=== PATIENT | female | born 2000 | race African-American/Black ===

== ENCOUNTER 2022-04-07 13:36 | Inpatient (IN) ==
--- NOTE | 2022-04-07 14:38 | Emergency Department Note ---
Impression & Plan Suicidal ideation ED Provider Note NAME: CARMELA NORIEGA AGE: 21 SEX: F : 2000 ARRIVES VIA: Walk-In INFORMANT: [Patient] ED PROVIDER(S): [Jose R Verdugo MD] CHIEF COMPLAINT: Mental health evaluation HISTORY OF PRESENT ILLNESS: The patient is a 21-year-old female who presents to the ER asking for a voluntary psychiatric hospitalization. The patient states that she has been feeling suicidal for about 2 weeks. She has researched some ways to harm her self. She thought about using inhaled nitrogen, she thought about provoking police and getting shot, she thought about jumping off a bridge. The patient did confide in her family, she saw her therapist today and the therapist recommended a hospitalization. She presents for evaluation. Patient is medicated for depression, she is taking her medications as prescribed. She does admit to some increased stressors with friends moving away. She has not had fever, chills, cough or congestion. Her medical health has been stable. She did attempt to harm her self once before but this was many years ago when she was around 12. REVIEW OF SYSTEMS: See HPI for pertinent positives and negatives. A total of ten systems were reviewed and were otherwise negative. PMHx/PSHx: See Below SOCIAL HISTORY: See Below. PHYSICAL EXAM: GENERAL: Patient is in no acute distress. HEENT: No acute trauma, normocephalic atraumatic, mucous membranes moist, no nasal congestion, no scleral icterus. NECK: No stridor, no adenopathy, no meningismus, trachea is midline. LUNGS: Clear to auscultation bilaterally, no wheeze, no rhonchi, breath sounds equal. HEART: Without murmurs gallops or rubs, regular rate and rhythm. ABDOMEN: Soft, nontender, bowel sounds positive, no peritonitis. EXTREMITIES: No cyanosis or edema, full range of motion of all the joints without pain or difficulty, no signs for acute trauma. NEUROLOGIC: Oriented x 3, no acute motor or sensory deficits, no focal weakness. SKIN: No rash, no jaundice, no diaphoresis. Psychiatric: Somewhat flattened affect. Cooperative, voluntary, admits to suicidal ideation with several plans DIFFERENTIAL DIAGNOSIS: Mood disorder, infection, hypoglycemia, depression, suicidality, electrolyte abnormalities, cardiac sources, intracerebral event, toxicologic etiology, trauma, neurologic event, as well as other pathologies. EMERGENCY DEPARTMENT COURSE/PROCEDURES: MEDICAL DECISION MAKING: There is no leukocytosis or concerning anemia. There is a normal platelet count. No renal failure, no significant electrolyte abnormality. No worrisome liver enzyme elevation. The patient appears to be in a euthyroid state. testing is negative. Urinalysis does not show infection. Aspirin, Tylenol and alcohol levels are undetectable. Urine tox was negative. COVID test was negative. On exam, the patient did admit to some suicidal ideation with some plans on how to harm her self. She was voluntary and cooperative. The patient was felt medically clear. She was seen by psychiatry case management. The patient has been accepted at our hospital's psychiatric facility, [facility] She will be admitted voluntarily. Past Med/Surg History Medical History Depression Social History Smoking Status: Never smoker Preferred Language: Persian Feels Safe at Home: Yes Allergies Allergies Allergy/AdvReac Type Severity Reaction Status Date / Time hydroxyzine [From Atarax] AdvReac Confusion Verified 04/07/22 14:55 Home Meds Home Medications Medication Instructions Recorded Confirmed sertraline 100 mg tablet 175 mg PO DAILY 04/07/22 04/07/22 Results & Data (ED) Vital Signs Vital Signs - 24 hr 04/07/22 13:45 Temperature 36.4 C L Temperature Source Temporal Artery Scan Pulse Rate 87 Respiratory Rate 18 Respiratory Effort / Characteristics Non-Labored Respiratory Depth Normal Blood Pressure 121/81 Blood Pressure Mean 94 Pulse Oximetry 98 Oxygen Delivery Method Room Air Sepsis Recent Fever Within 48 Hours No Sepsis New/Unexplained Change in Mental Status No Sepsis Action Taken by Nursing No Action Required Home Medications Current Medication List: was personally reviewed by me Laboratory Data Attestation: I reviewed the patient's lab results. Result diagrams: 04/07/22 14:39 04/07/22 14:39 Lab Results 04/07/22 04/07/22 04/07/22 Range/Units 14:05 14:05 14:39 WBC (4.8-10.8) K/ul RBC (3.93-5.22) M/uL Hgb (12.0-16.0) g/dl Hct (34.1-44.9) % MCV (80.0-100.0) fL MCH (25.0-34.0) pg MCHC (32.0-36.0) g/dL RDW Std Deviation (36.4-46.3) fL RDW Coeff of [place] (11.5-14.5) % Plt Count (130-400) K/uL MPV (9.4-12.3) fL Immature Gran % (Auto) % Neut % (Auto) % Lymph % (Auto) % [place] % (Auto) % Eos % (Auto) % Baso % (Auto) % Neut # (Auto) (1.4-6.5) K/uL Lymph # (Auto) (1.2-3.4) K/uL [place] # (Auto) (0.24-0.82) K/uL Eos # (Auto) (0-0.50) K/uL Baso # (Auto) (0-0.2) K/uL Immature Gran # (Auto) (0.00-0.02) K/uL Sodium (136-145) mmol/L Potassium (3.5-5.1) mmol/L Chloride (98-107) mmol/L Carbon Dioxide (21-32) mmol/L Anion Gap (3-11) BUN (6-23) mg/dl Creatinine (0.6-1.2) mg/dl Est Cr Clr Drug Dosing ml/min Est GFR ( Amer) ml/min Est GFR (Non-Af Amer) ml/min BUN/Creatinine Ratio (10-20) Glucose (70-99(Fasting)) mg/dl Calcium (8.5-10.1) mg/dl Total Bilirubin (0.2-1.0) mg/dl AST (13-39) U/L ALT (7-52) U/L Alkaline Phosphatase (34-104) U/L Total Protein (6.0-8.3) gm/dl Albumin (3.4-5.0) gm/dl Globulin (2.5-4.0) gm/dl Albumin/Globulin Ratio (0.9-2) TSH (0.300-4.500) uIu/ml HCG, Qual Negative (Negative) Urine Color Yellow Urine Appearance Clear (Clear) Urine pH 6.0 (4.5-7.5) Ur Specific [place] 1.020 (1.000-1.030) Urine Protein Negative (Negative) Urine Glucose (UA) Negative (Negative) Urine Ketones Negative (Negative) Urine Blood Negative (Negative) Urine Nitrite Negative (Negative) Urine Bilirubin Negative (Negative) Urine Urobilinogen Negative (Negative) Ur Leukocyte Esterase Negative (Negative) Salicylates (3.0-30) mg/dl Urine Opiates Screen Neg (Neg) Ur Methadone, Qual Neg (Neg) Acetaminophen (10-30) ug/ml Urine Barbiturates Neg (Neg) Ur Phencyclidine (PCP) Neg (Neg) U Amphetamin/Meth Scrn Neg (Neg) MDMA (Ecstasy) Screen Neg (Neg) U Benzodiazepines Scrn Neg (Neg) Ur Cocaine Metabolite Neg (Neg) U Marijuana (THC) Screen Pos H (Neg) Ethyl Alcohol mg/dL (<10.0) mg/dl SARS-CoV-2, RNA, NAAT (NEGATIVE) 04/07/22 04/07/22 04/07/22 Range/Units 14:39 14:39 14:39 WBC 7.52 (4.8-10.8) K/ul RBC 4.55 (3.93-5.22) M/uL Hgb 13.6 (12.0-16.0) g/dl Hct 41.8 (34.1-44.9) % MCV 91.9 (80.0-100.0) fL MCH 29.9 (25.0-34.0) pg MCHC 32.5 (32.0-36.0) g/dL RDW Std Deviation 45.0 (36.4-46.3) fL RDW Coeff of [place] 13.2 (11.5-14.5) % Plt Count 309 (130-400) K/uL MPV 9.4 (9.4-12.3) fL Immature Gran % (Auto) 0.3 % Neut % (Auto) 56.3 % Lymph % (Auto) 31.6 % [place] % (Auto) 9.3 % Eos % (Auto) 2.0 % Baso % (Auto) 0.5 % Neut # (Auto) 4.23 (1.4-6.5) K/uL Lymph # (Auto) 2.38 (1.2-3.4) K/uL [place] # (Auto) 0.70 (0.24-0.82) K/uL Eos # (Auto) 0.15 (0-0.50) K/uL Baso # (Auto) 0.04 (0-0.2) K/uL Immature Gran # (Auto) 0.02 (0.00-0.02) K/uL Sodium 138 (136-145) mmol/L Potassium 4.1 (3.5-5.1) mmol/L Chloride 105 (98-107) mmol/L Carbon Dioxide 29 (21-32) mmol/L Anion Gap 4 (3-11) BUN 9 (6-23) mg/dl Creatinine 0.68 (0.6-1.2) mg/dl Est Cr Clr Drug Dosing 126.2 ml/min Est GFR ( Amer) 142.9 ml/min Est GFR (Non-Af Amer) 123.3 ml/min BUN/Creatinine Ratio 13.2 (10-20) Glucose 91 (70-99(Fasting)) mg/dl Calcium 9.1 (8.5-10.1) mg/dl Total Bilirubin 0.4 (0.2-1.0) mg/dl AST 11 L (13-39) U/L ALT 9 (7-52) U/L Alkaline Phosphatase 64 (34-104) U/L Total Protein 7.2 (6.0-8.3) gm/dl Albumin 4.1 (3.4-5.0) gm/dl Globulin 3.1 (2.5-4.0) gm/dl Albumin/Globulin Ratio 1.3 (0.9-2) TSH 1.127 (0.300-4.500) uIu/ml HCG, Qual (Negative) Urine Color Urine Appearance (Clear) Urine pH (4.5-7.5) Ur Specific [place] (1.000-1.030) Urine Protein (Negative) Urine Glucose (UA) (Negative) Urine Ketones (Negative) Urine Blood (Negative) Urine Nitrite (Negative) Urine Bilirubin (Negative) Urine Urobilinogen (Negative) Ur Leukocyte Esterase (Negative) Salicylates (3.0-30) mg/dl Urine Opiates Screen (Neg) Ur Methadone, Qual (Neg) Acetaminophen (10-30) ug/ml Urine Barbiturates (Neg) Ur Phencyclidine (PCP) (Neg) U Amphetamin/Meth Scrn (Neg) MDMA (Ecstasy) Screen (Neg) U Benzodiazepines Scrn (Neg) Ur Cocaine Metabolite (Neg) U Marijuana (THC) Screen (Neg) Ethyl Alcohol mg/dL (<10.0) mg/dl SARS-CoV-2, RNA, NAAT (NEGATIVE) 04/07/22 04/07/22 04/07/22 Range/Units 14:39 14:39 14:39 WBC (4.8-10.8) K/ul RBC (3.93-5.22) M/uL Hgb (12.0-16.0) g/dl Hct (34.1-44.9) % MCV (80.0-100.0) fL MCH (25.0-34.0) pg MCHC (32.0-36.0) g/dL RDW Std Deviation (36.4-46.3) fL RDW Coeff of [place] (11.5-14.5) % Plt Count (130-400) K/uL MPV (9.4-12.3) fL Immature Gran % (Auto) % Neut % (Auto) % Lymph % (Auto) % [place] % (Auto) % Eos % (Auto) % Baso % (Auto) % Neut # (Auto) (1.4-6.5) K/uL Lymph # (Auto) (1.2-3.4) K/uL [place] # (Auto) (0.24-0.82) K/uL Eos # (Auto) (0-0.50) K/uL Baso # (Auto) (0-0.2) K/uL Immature Gran # (Auto) (0.00-0.02) K/uL Sodium (136-145) mmol/L Potassium (3.5-5.1) mmol/L Chloride (98-107) mmol/L Carbon Dioxide (21-32) mmol/L Anion Gap (3-11) BUN (6-23) mg/dl Creatinine (0.6-1.2) mg/dl Est Cr Clr Drug Dosing ml/min Est GFR ( Amer) ml/min Est GFR (Non-Af Amer) ml/min BUN/Creatinine Ratio (10-20) Glucose (70-99(Fasting)) mg/dl Calcium (8.5-10.1) mg/dl Total Bilirubin (0.2-1.0) mg/dl AST (13-39) U/L ALT (7-52) U/L Alkaline Phosphatase (34-104) U/L Total Protein (6.0-8.3) gm/dl Albumin (3.4-5.0) gm/dl Globulin (2.5-4.0) gm/dl Albumin/Globulin Ratio (0.9-2) TSH (0.300-4.500) uIu/ml HCG, Qual (Negative) Urine Color Urine Appearance (Clear) Urine pH (4.5-7.5) Ur Specific [place] (1.000-1.030) Urine Protein (Negative) Urine Glucose (UA) (Negative) Urine Ketones (Negative) Urine Blood (Negative) Urine Nitrite (Negative) Urine Bilirubin (Negative) Urine Urobilinogen (Negative) Ur Leukocyte Esterase (Negative) Salicylates < 3.0 L (3.0-30) mg/dl Urine Opiates Screen (Neg) Ur Methadone, Qual (Neg) Acetaminophen < 3 L (10-30) ug/ml Urine Barbiturates (Neg) Ur Phencyclidine (PCP) (Neg) U Amphetamin/Meth Scrn (Neg) MDMA (Ecstasy) Screen (Neg) U Benzodiazepines Scrn (Neg) Ur Cocaine Metabolite (Neg) U Marijuana (THC) Screen (Neg) Ethyl Alcohol mg/dL < 10.0 (<10.0) mg/dl SARS-CoV-2, RNA, NAAT NEGATIVE (NEGATIVE) Discharge Plan Visit Data Chief Complaint: Mental Health Evaluation Stated Complaint: MH evaluation ED Provider: Jose R Verdugo Discharge Problem: Suicidal ideation Patient Disposition: Admitted As Inpatient Condition: Good Forms Stand Alone Forms: [facility], Suicide Prevention Resources Prescriptions Prescriptions: No Action sertraline 100 mg tablet 175 mg PO DAILY Referrals Referrals: PCP,NO [Primary Care Provider] -
[2022-04-07 14:57] LABS: Basophils # (auto) 0.04 K/uL (0-0.2); Basophils % (auto) 0.5 %; Eosinophils # (auto) 0.15 K/uL (0-0.50); Hematocrit (blood only) 41.8 % (34.1-44.9); Hemoglobin 13.6 g/dl (12.0-16.0); Immature Granulocytes # (auto) 0.02 K/uL (0.00-0.02); Immature Granulocytes % (auto) 0.3 %; Lymphocytes # (auto) 2.38 K/uL (1.2-3.4); Lymphocytes % (auto) 31.6 %; Mean Corpuscular Hemoglobin 29.9 pg (25.0-34.0); Mean Corpuscular Hgb Conc 32.5 g/dL (32.0-36.0); Mean Corpuscular Volume 91.9 fL (80.0-100.0); Mean Platelet Volume 9.4 fL (9.4-12.3); Monocytes % (auto) 9.3 %; Neutrophils # (auto) 4.23 K/uL (1.4-6.5); Neutrophils % (auto) 56.3 %; Platelet Count 309 K/uL (130-400); RDW Coefficient of Variation 13.2 % (11.5-14.5); Red Blood Count 4.55 M/uL (3.93-5.22); White Blood Count 7.52 K/ul (4.8-10.8)
[2022-04-07 15:20] LABS: Acetaminophen < 3 ug/ml (10-30); Salicylate < 3.0 mg/dl (3.0-30)
[2022-04-07 15:21] LABS: Albumin Globulin Ratio 1.3 (0.9-2); Albumin Level 4.1 gm/dl (3.4-5.0); BUN Creatinine Ratio 13.2 (10-20); Bilirubin,Total 0.4 mg/dl (0.2-1.0); Calcium 9.1 mg/dl (8.5-10.1); Creatinine Clr Calc Pharmacy 126.2 ml/min; Est GFR (African American) 142.9 ml/min; Est GFR (Non-African American) 123.3 ml/min; Globulin 3.1 gm/dl (2.5-4.0); Potassium 4.1 mmol/L (3.5-5.1); Total Protein 7.2 gm/dl (6.0-8.3)
[2022-04-07 15:26] LABS: Pregnancy Test, Serum Negative (Negative)
[2022-04-07 15:47] LABS: Appearance Urine Clear (Clear); Bilirubin Urine Negative (Negative); Blood Urine Negative (Negative); Color Urine Yellow; Glucose Urine UA Negative (Negative); Ketones Urine Negative (Negative); Leukocyte Esterase Urine Negative (Negative); Nitrite Urine Negative (Negative); Protein Urine Negative (Negative); Urobilinogen Urine Negative (Negative)
[2022-04-07 16:00] LABS: Amphetamines+Metham, Urine Neg (Neg); Barbiturates, Urine Neg (Neg); Benzodiazepine, Urine Neg (Neg); Cocaine, Urine Neg (Neg); MDMA (Ecstacy), Urine Neg (Neg); Methadone, Urine Neg (Neg); Opiate, Urine Neg (Neg); Phencyclidine, Urine Neg (Neg)
[2022-04-07] MEDS ORDERED: MAGNESIUM HYDROXIDE SUSP 30 ML UDC PO PRN (16:39)
[2022-04-07] MEDS ORDERED: ALUMINUM/MAGNESIUM SUSP 30 ML UDC PO PRN (16:39)
[2022-04-07] MEDS ORDERED: SODIUM CHLORIDE 0.65% NA SOLN 45 ML (OCEAN) PRN (16:39)
[2022-04-07] MEDS ORDERED: ACETAMINOPHEN 325 MG TAB PO PRN (16:39)
[2022-04-07] MEDS ORDERED: BISMUTH SUBSALICYLATE LIQD 236 ML PO PRN (16:39)
[2022-04-07] MEDS ORDERED: MELATONIN 3 MG TAB PO PRN (16:44)
[2022-04-07] MEDS ORDERED: PROPRANOLOL HCL 10 MG TAB PO PRN (17:30)
[2022-04-08] MEDS ORDERED: SERTRALINE HCL 50 MG TABLET PO SCH (09:00)
[2022-04-08] MEDS ORDERED: SERTRALINE HCL 100 MG TABLET PO SCH (09:00)
--- NOTE | 2022-04-08 09:48 | History & Physical ---
Date of Service April 08, 2022 Impression / Recommendations Impression The patient is a 21 year old with a history of MDD, DULCE and PTSD who was admitted for worsening depression and SI with plan. Diagnostically consistent with MDD, recurrent, severe and PTSD and DULCE by history. Possible cluster B traits but suspect much more likely due to significant trauma and genetic predisposition. The patient is deemed unstable and requires psychiatric hospitalization for diagnostic clarification, safety and stabilization, medication management and development of further coping skills. Discussed medication treatment options in detail. Discussed risks, benefits and alternatives including SSRI, Wellbutrin, SNRI. Patient would like to start and consented to an increase in sertraline for MDD and PTSD. Reviewed side effects including but not limited to: GI, CONLEY, sexual side effects, and counseled on black box warning of potential for emergence of or increased SI and need to let staff know should this occur or should they feel unsafe. Also discussed importance of seeking emergency care following discharge if this side effect occurs in the future. Reviewed option to re-try hydroxyzine given adverse response in adolescence may have been increased disinhibition which can occur prior to adulthood but also possibility for repeat of confusion so only if she desires to try it for anxiety. Also discussed propranolol as needed for alternative anxiety medication reviewed that off-label use but can help with anxiety and fight/flight response discussed side effects including but not limited to syncope, low BP, dizziness. (1) MDD (major depressive disorder), recurrent episode, severe: (2) Post traumatic stress disorder (PTSD): (3) Suicidal ideation: Plan 04/08/22: The patient was admitted to the [facility] ([facility]) on q15 min checks (behavioral with suicide precautions) for safety. The patient will participate in group, recreational, and milieu therapies and will be offered additional individual and family sessions as clinically appropriate. -Increase sertraline to 200mg qd -Hydroxyzine 10mg qd prn -Propranolol 10mg BID prn -[place] BPD screen Inventory Assets Strengths: resilient/trauma survivor, higher education achievement, support from family, outpatient provider Needs: safety and stabilization, medication adjustment, additional coping skills, increased outpatient services Suicide Risk Level Suicide Risk Level Comments: High-Moderate due to severe depression with SI with plan prior to admission but feels safe in the hospital, able to safety contract and agrees to let nursing/staff know should they develop plan, intent or feel unable to remain safe. Risk Factors Assessment Do You Have Access To A Gun?: Yes (father has a safe with a gun that is locked ) Mental Health Diagnoses: Yes Previous Attempt: Yes Family History of Suicide: Yes Previous Psychiatric Hospitalization: Yes Hopelessness: Yes Protective Factors Assessment Employed: Yes (works 3 different jobs) Stable Relationships: Yes Supportive Family: Yes Psychiatric History Identifying Data DEV NORIEGA is a 21-year-old F who currently lives in [place] [facility] with her parents, has a history of depression, and was admitted on 04/07/22 16:42 on a 201 voluntary commitment for SI with multiple plans. Chief Complaint "Things got a lot worse lately". History of Present Illness Dev presents for psychiatric admission at the recommendation of her therapist for worsening depression and SI with plans of jumping from a bridge, suicide by police or inhaling nitrogen in the last 2-3 weeks in the context of recent stressors including finishing graduate school, moving home, more social isolation with friends moving away, and romantic rejection. She notes that after the romantic rejection usually she can move on from that but this time "my brain brought up every negative thing that has happened to me". She sometimes has SI when she has a dip in low but over the last few weeks the SI has intensified and gotten to the point of happening all throughout the day and "ruminating on the thoughts" for at least 20 minutes at a time. About three days ago it intensified to the point of plans. Some rehearsal behaviors of veering her car while driving but then would correct herself. Significant neurovegetative symptoms of depression that have been worsening. Has been trying to fall asleep by using a guided meditation. She confirms recent symptoms of worsening depression as reviewed in collateral per ED CM: "Patient reports in the past 2 weeks she has been experiencing increased depressive symptoms; sadness, hopelessness, helplessness, feeling of being a burden to her family, and anhedonia. Patient reports that she also is having suicidal ideations with several plans including, jumping off a bridge, provoking police, or inhaling nitrogen. Patient reports that she was researching inhalation of nitrogen last night, but denies having access to nitrogen. Patient reports that precipitating stressors have been her friends moving across the country to live. Patient also reports feeling unwanted and rejected by people that she had recent intimate relationships. Patient reports that she just moved back home to live with her parents in [place] [facility] after finishing her Master's Degree in Jordanian. 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 Patient reports that her sleep has been varying some due to work, but she feels as though she has been sleeping too much, typically getting 12-13 hours a sleep per night. Patient also reports that her depression has decreased her appetite and caused lack of motivation with her daily activities." She endorses some anxiety symptoms from being in the hospital in a new environment. She endorse PTSD symptoms including intrusive memories/flashbacks after being in the ED, hypervigilance, no longer with night terrors. She has been taking Zoloft 175mg per day for the last 8 years and on 175mg for the last 2-3 years. For awhile it was really helpful at preventing "these really bad lows" but about 2-3 weeks ago the medication stopped being as helpful. Does experience night sweats from it and has to shower in the mornings. Psychiatric ROS notable for no history of ann marie but in college did have some periods of time with decreased sleep but without significant increase in energy, no history of psychosis, hx of trauma/PTSD, hx self-harm via cutting, last two days ago, and using a rubber band, history of restricting calories during childhood and still some body dysmorphia but no restriction/binging or purging. Past Psychiatric History Current Psychiatric Diagnosis: MDD,DULCE, PTSD Outpatient Services: Kaylynn Ontiveros with IFS approach at [facility] just saw for first time yesterday, after June she had been seeing a therapist at [facility] until January EMDR and IFS, previously saw Dr. Nelson for outpatient psychiatry at [facility] Previous Psych Admissions: age 12 at [facility] after suicide attempt Do You Have Access To A Gun?: Yes (father has a safe with a gun that is locked ) History of Previous Suicide Attempt: Yes Describe Attempts in the Past: via strangulation at age 12 Past Medication Trials: hydroxyzine-caused confusion, at age 12; fluoxetine prior to age 12; Past Head Trauma/Neuro History History of Concussion/Seizure: No Allergies Allergy/AdvReac Type Severity Reaction Status Date / Time hydroxyzine [From Atarax] AdvReac Confusion Verified 04/07/22 14:55 Home Medications Medication Instructions Recorded Confirmed Type sertraline 100 mg tablet 175 mg PO DAILY 04/07/22 04/07/22 History Family History Family History of: Depression (mother (takes Wellbutrin) and father), Suicide Attempts, Bipolar (paternal grandmother and possible in father) and Suicide Completion Family Mental Health History Comment: Brother by suicide 5.5 years ago, both great-grandparents on mother's side by suicide. Alcohol History Hx of Alcohol Use Over the Past 12 Months: No AUDIT Total Score: 1 Rare use, at special occasions such as at weddings Smoking Use Have You Smoked or Used Tobacco Products in the Last 30 Days: No Smoking Status: Never smoker Substance History Hx of Prescription Med Misuse Over the Past 12 Months: No Hx of Over the Counter Med Misuse Over the Past 12 Months: No Hx of Inhalent Misuse Over the Past 12 Months: No Hx of Organic Substance Use Over the Past 12 Months: Yes (Marijuana a few times a month.) Hx of Illegal Substances/Street Drug Use Over Past 12 Months: No Problems as a Result of Past Substance Use: None Identified Occasional marijuana use-likes that it's calming and make the "mean thoughts disappear for awhile", doesn't like that her mom doesn't like it. Personal History Living Arrangements: Home Childhood: Grew up in [place] [facility], Parents are . Younger brother who . Very close with her mother and getting closer with her father. 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 Review of Systems Review of Systems: All systems reviewed & are unremarkable except as noted in HPI & below Physical Exam Psychiatric: Orientation: alert and oriented x 3 Apperance: appropriately dressed and appropriately groomed Eye Contact: good eye contact Motor Behavior: no abnormal motor movements Speech: normal rate/rhythm/volume of speech Affect: + depressed affect Mood: + depressed mood and + anxious mood Thought Process: goal directed thought process Thought Content: reality based without delusions Suicidal Thoughts: denies suicidal intent; + reports suicidal thoughts (none currently but SI with plans prior to admission) and + reports suicidal plan (prior to admission, feels safe on the unit) Homicidal Thoughts: denies homicidal thoughts Hallucinations: no auditory hallucinations and no visual hallucinations Cognition: recent memory grossly intact, remote memory grossly intact, attention grossly intact and language grossly intact Estimated Intelligence: consistent with education level Insight: + fair insight Judgement: + fair judgement Vital Signs (Past 24 Hours): Last Vital Signs Temp 36.6 C 04/08/22 06:00 Pulse 72 04/08/22 06:49 Resp 18 04/08/22 06:00 BP 110/75 04/08/22 06:49 Pulse Ox 99 04/08/22 06:00 O2 Del Method 04/08/22 06:00 Exam Statement: A physical exam was performed in the ED by Kartik for the purposes of medical clearance. I accept that physical as correct and adequate for the purposes of the inpatient physical exam. Results & Data ([facility]) Laboratory Results Laboratory Results - last 24 hr 04/07/22 04/07/22 04/07/22 14:05 14:05 14:05 WBC RBC Hgb Hct MCV MCH MCHC RDW Std Deviation RDW Coeff of Rosales Plt Count MPV Immature Gran % (Auto) Neut % (Auto) Lymph % (Auto) [place] % (Auto) Eos % (Auto) Baso % (Auto) Neut # (Auto) Lymph # (Auto) [place] # (Auto) Eos # (Auto) Baso # (Auto) Immature Gran # (Auto) Sodium Potassium Chloride Carbon Dioxide Anion Gap BUN Creatinine Est Cr Clr Drug Dosing Est GFR ( Amer) Est GFR (Non-Af Amer) BUN/Creatinine Ratio Glucose Calcium Total Bilirubin AST ALT Alkaline Phosphatase Total Protein Albumin Globulin Albumin/Globulin Ratio TSH HCG, Qual Urine Color Yellow Urine Appearance Clear Urine pH 6.0 Ur Specific [place] 1.020 Urine Protein Negative Urine Glucose (UA) Negative Urine Ketones Negative Urine Blood Negative Urine Nitrite Negative Urine Bilirubin Negative Urine Urobilinogen Negative Ur Leukocyte Esterase Negative Salicylates Urine Opiates Screen Neg Ur Methadone, Qual Neg Acetaminophen Urine Barbiturates Neg Ur Phencyclidine (PCP) Neg U Amphetamin/Meth Scrn Neg MDMA (Ecstasy) Screen Neg U Benzodiazepines Scrn Neg Ur Cocaine Metabolite Neg U Marijuana (THC) Screen Pos H U Marijuana THC Carboxy Pending Drug Screen Comment Pending Ethyl Alcohol mg/dL SARS-CoV-2, RNA, NAAT 04/07/22 04/07/22 04/07/22 14:39 14:39 14:39 WBC 7.52 RBC 4.55 Hgb 13.6 Hct 41.8 MCV 91.9 MCH 29.9 MCHC 32.5 RDW Std Deviation 45.0 RDW Coeff of Rosales 13.2 Plt Count 309 MPV 9.4 Immature Gran % (Auto) 0.3 Neut % (Auto) 56.3 Lymph % (Auto) 31.6 [place] % (Auto) 9.3 Eos % (Auto) 2.0 Baso % (Auto) 0.5 Neut # (Auto) 4.23 Lymph # (Auto) 2.38 [place] # (Auto) 0.70 Eos # (Auto) 0.15 Baso # (Auto) 0.04 Immature Gran # (Auto) 0.02 Sodium 138 Potassium 4.1 Chloride 105 Carbon Dioxide 29 Anion Gap 4 BUN 9 Creatinine 0.68 Est Cr Clr Drug Dosing 126.2 Est GFR ( Amer) 142.9 Est GFR (Non-Af Amer) 123.3 BUN/Creatinine Ratio 13.2 Glucose 91 Calcium 9.1 Total Bilirubin 0.4 AST 11 L ALT 9 Alkaline Phosphatase 64 Total Protein 7.2 Albumin 4.1 Globulin 3.1 Albumin/Globulin Ratio 1.3 TSH HCG, Qual Negative Urine Color Urine Appearance Urine pH Ur Specific [place] Urine Protein Urine Glucose (UA) Urine Ketones Urine Blood Urine Nitrite Urine Bilirubin Urine Urobilinogen Ur Leukocyte Esterase Salicylates Urine Opiates Screen Ur Methadone, Qual Acetaminophen Urine Barbiturates Ur Phencyclidine (PCP) U Amphetamin/Meth Scrn MDMA (Ecstasy) Screen U Benzodiazepines Scrn Ur Cocaine Metabolite U Marijuana (THC) Screen U Marijuana THC Carboxy Drug Screen Comment Ethyl Alcohol mg/dL SARS-CoV-2, RNA, NAAT 04/07/22 04/07/22 04/07/22 14:39 14:39 14:39 WBC RBC Hgb Hct MCV MCH MCHC RDW Std Deviation RDW Coeff of Rosales Plt Count MPV Immature Gran % (Auto) Neut % (Auto) Lymph % (Auto) [place] % (Auto) Eos % (Auto) Baso % (Auto) Neut # (Auto) Lymph # (Auto) [place] # (Auto) Eos # (Auto) Baso # (Auto) Immature Gran # (Auto) Sodium Potassium Chloride Carbon Dioxide Anion Gap BUN Creatinine Est Cr Clr Drug Dosing Est GFR ( Amer) Est GFR (Non-Af Amer) BUN/Creatinine Ratio Glucose Calcium Total Bilirubin AST ALT Alkaline Phosphatase Total Protein Albumin Globulin Albumin/Globulin Ratio TSH 1.127 HCG, Qual Urine Color Urine Appearance Urine pH Ur Specific [place] Urine Protein Urine Glucose (UA) Urine Ketones Urine Blood Urine Nitrite Urine Bilirubin Urine Urobilinogen Ur Leukocyte Esterase Salicylates < 3.0 L Urine Opiates Screen Ur Methadone, Qual Acetaminophen < 3 L Urine Barbiturates Ur Phencyclidine (PCP) U Amphetamin/Meth Scrn MDMA (Ecstasy) Screen U Benzodiazepines Scrn Ur Cocaine Metabolite U Marijuana (THC) Screen U Marijuana THC Carboxy Drug Screen Comment Ethyl Alcohol mg/dL < 10.0 SARS-CoV-2, RNA, NAAT 04/07/22 14:39 WBC RBC Hgb Hct MCV MCH MCHC RDW Std Deviation RDW Coeff of Rosales Plt Count MPV Immature Gran % (Auto) Neut % (Auto) Lymph % (Auto) [place] % (Auto) Eos % (Auto) Baso % (Auto) Neut # (Auto) Lymph # (Auto) [place] # (Auto) Eos # (Auto) Baso # (Auto) Immature Gran # (Auto) Sodium Potassium Chloride Carbon Dioxide Anion Gap BUN Creatinine Est Cr Clr Drug Dosing Est GFR ( Amer) Est GFR (Non-Af Amer) BUN/Creatinine Ratio Glucose Calcium Total Bilirubin AST ALT Alkaline Phosphatase Total Protein Albumin Globulin Albumin/Globulin Ratio TSH HCG, Qual Urine Color Urine Appearance Urine pH Ur Specific [place] Urine Protein Urine Glucose (UA) Urine Ketones Urine Blood Urine Nitrite Urine Bilirubin Urine Urobilinogen Ur Leukocyte Esterase Salicylates Urine Opiates Screen Ur Methadone, Qual Acetaminophen Urine Barbiturates Ur Phencyclidine (PCP) U Amphetamin/Meth Scrn MDMA (Ecstasy) Screen U Benzodiazepines Scrn Ur Cocaine Metabolite U Marijuana (THC) Screen U Marijuana THC Carboxy Drug Screen Comment Ethyl Alcohol mg/dL SARS-CoV-2, RNA, NAAT NEGATIVE Current Inpatient Medications Current Inpatient Medications: Current Inpatient Medications Acetaminophen (Acetaminophen 325 Mg Tab) 650 mg PO Q4H PRN PRN Reason: Headache or Minor Fever Stop: 05/07/22 16:38 Al Hydrox/Mg Hydrox/Simethicone (Aluminum/Magnesium Susp 30 Ml Udc) 30 ml PO Q4H PRN PRN Reason: GI Upset Stop: 05/07/22 16:38 Bismuth Subsalicylate (Bismuth Subsalicylate Liqd 236 Ml) 15 ml PO PRN PRN PRN Reason: Loose Stool Stop: 05/07/22 16:38 Magnesium Hydroxide (Magnesium Hydroxide Susp 30 Ml Udc) 30 ml PO DAILY PRN PRN Reason: Constipation Stop: 05/07/22 16:38 Melatonin (Melatonin 3 Mg Tab) 3 mg PO HS PRN PRN Reason: Sleep Stop: 05/07/22 16:43 Propranolol HCl (Propranolol Hcl 10 Mg Tab) 10 mg PO BID PRN PRN Reason: Anxiety Stop: 05/07/22 20:59 Sertraline HCl (Sertraline Hcl 50 Mg Tablet) 175 mg PO QAM KEO Stop: 05/08/22 08:59 Last Admin: 04/08/22 09:39 Dose: 175 mg Sodium Chloride (Sodium Chloride 0.65% Na Soln 45 Ml ([place])) 1 - 2 sprays NA PRN PRN PRN Reason: Nasal Dryness/Congestion Stop: 05/07/22 16:38
[2022-04-08] MEDS ORDERED: PROPRANOLOL HCL 10 MG TAB PO PRN (11:07)
[2022-04-08] MEDS ORDERED: hydrOXYzine HCl 10 MG TAB PO PRN (11:07)
[2022-04-08] MEDS ORDERED: SERTRALINE HCL 50 MG TABLET PO ONE (11:30)
[2022-04-09] MEDS: SERTRALINE HCL 100 MG TABLET PO SCH (10:21)
--- NOTE | 2022-04-09 16:37 | Psychiatric Progress Note ---
Date of Service April 09, 2022 Impression / Recommendations Impression The patient is a 21 year old with a history of MDD, DULCE and PTSD who was admitted for worsening depression and SI with plan. Diagnostically consistent with MDD, recurrent, severe and PTSD and DULCE by history. Possible cluster B traits but suspect much more likely due to significant trauma and genetic predisposition. The patient is deemed unstable and requires psychiatric hospitalization for diagnostic clarification, safety and stabilization, medication management and development of further coping skills. 04/09/22: Continues to have severe depression with some anxiety and significant trauma symptoms PTSD. She is tolerating the higher dose of sertraline without any side effects. She has not required any as needed anxiety medications. (1) MDD (major depressive disorder), recurrent episode, severe: (2) Post traumatic stress disorder (PTSD): (3) Suicidal ideation: Plan 04/09/22: Continue with current medications and treatment plan. 04/08/22: The patient was admitted to the [facility] ([facility]) on q15 min checks (behavioral with suicide precautions) for safety. The patient will participate in group, recreational, and milieu therapies and will be offered additional individual and family sessions as clinically appropriate. -Increase sertraline to 200mg qd -Hydroxyzine 10mg qd prn -Propranolol 10mg BID prn -[place] BPD screen Inventory Assets Strengths: resilient/trauma survivor, higher education achievement, support from family, outpatient provider Needs: safety and stabilization, medication adjustment, additional coping skills, increased outpatient services Suicide Risk Level Suicide Risk Level Comments: High-Moderate due to severe depression with SI with plan prior to admission but feels safe in the hospital, able to safety contract and agrees to let nursing/staff know should they develop plan, intent or feel unable to remain safe. Risk Factors Assessment Do You Have Access To A Gun?: Yes (father has gun in home, pt unaware of where it is located) Mental Health Diagnoses: Yes Previous Attempt: Yes Family History of Suicide: Yes Previous Psychiatric Hospitalization: Yes Hopelessness: Yes Protective Factors Assessment Employed: Yes (works 3 different jobs) Stable Relationships: Yes Supportive Family: Yes Interval History Identifying Information DEV NORIEGA is a 21-year-old F who currently lives in [facility] [facility] with her parents, has a history of depression, and was admitted on 04/07/22 16:42 on a 201 voluntary commitment for SI with multiple plans. Chief Complaint "I'm ok". Review of Systems Sleep Information Total Hours of Sleep: 8.25 Meal Information Percent Meal Consumed - Breakfast: 100 Percent Meal Consumed - Lunch: 100 Percent Meal Consumed - Dinner: 100 Subjective Subjective Patient was seen & assessed and interval progress reviewed with treatment team nursing and social work. Dev reports she had some heart palpitations which she associates with panic symptoms last night but they resolved and her anxiety improved and she was able to go to sleep. She discussed that she has a many year history of sometimes hearing sounds or seeing things as she is falling asleep and we reviewed the likelihood that these sounded very consistent with hypnagogic hallucinations which she was relieved to hear. We reviewed her [place] BPD screen which seems most consistent with a trauma anxiety and depression presentation and not with symptoms of borderline personality disorder. He discussed that she feels she has an unhelpful/unhealthy pattern of behavior in relationships in which she becomes very concerned about abandonment and will repeatedly text partners and considered ways to approach this differently in the future and change some of these patterns. Physical Exam Psychiatric Orientation: alert and oriented x 3 Apperance: appropriately dressed and appropriately groomed Eye Contact: good eye contact Motor Behavior: no abnormal motor movements Speech: normal rate/rhythm/volume of speech Affect: + depressed affect and + anxious affect Mood: + depressed mood and + anxious mood Thought Process: goal directed thought process Thought Content: reality based without delusions Suicidal Thoughts: denies suicidal plan (prior to admission, feels safe on the unit) and denies suicidal intent; + reports suicidal thoughts (Intermittent SI) Homicidal Thoughts: denies homicidal thoughts Hallucinations: no auditory hallucinations and no visual hallucinations Cognition: recent memory grossly intact, remote memory grossly intact, attention grossly intact and language grossly intact Estimated Intelligence: consistent with education level Insight: + fair insight Judgement: + fair judgement Vital Signs (Past 24 Hours) Last Vital Signs Temp 36.8 C 04/09/22 06:37 Pulse 88 04/09/22 06:38 Resp 16 04/09/22 06:37 BP 113/80 04/09/22 06:38 Pulse Ox 99 04/08/22 06:00 O2 Del Method 04/08/22 06:00 Results & Data ([facility]) Current Inpatient Medications Current Inpatient Medications: Current Inpatient Medications Acetaminophen (Acetaminophen 325 Mg Tab) 650 mg PO Q4H PRN PRN Reason: Headache or Minor Fever Stop: 05/07/22 16:38 Al Hydrox/Mg Hydrox/Simethicone (Aluminum/Magnesium Susp 30 Ml Udc) 30 ml PO Q4H PRN PRN Reason: GI Upset Stop: 05/07/22 16:38 Bismuth Subsalicylate (Bismuth Subsalicylate Liqd 236 Ml) 15 ml PO PRN PRN PRN Reason: Loose Stool Stop: 05/07/22 16:38 Hydroxyzine HCl (Hydroxyzine Hcl 10 Mg Tab) 10 mg PO DAILY PRN PRN Reason: anxiety Stop: 05/08/22 11:06 Magnesium Hydroxide (Magnesium Hydroxide Susp 30 Ml Udc) 30 ml PO DAILY PRN PRN Reason: Constipation Stop: 05/07/22 16:38 Melatonin (Melatonin 3 Mg Tab) 3 mg PO HS PRN PRN Reason: Sleep Stop: 05/07/22 16:43 Propranolol HCl (Propranolol Hcl 10 Mg Tab) 10 mg PO BID PRN PRN Reason: Anxiety/Agitation Stop: 05/08/22 20:59 Sertraline HCl (Sertraline Hcl 100 Mg Tablet) 200 mg PO QAM KEO Stop: 05/09/22 08:59 Last Admin: 04/09/22 10:21 Dose: 200 mg Sodium Chloride (Sodium Chloride 0.65% Na Soln 45 Ml ([place])) 1 - 2 sprays NA PRN PRN PRN Reason: Nasal Dryness/Congestion Stop: 05/07/22 16:38 Mental Health & Subst Abuse Tx Therapist Name of Therapist: Kaylynn Ontiveros Post Discharge Appointments Primary Care Physician Name Of Family Doctor: Dr. Griffiths
[2022-04-10 00:04] LABS: Marijuana Quant, GCMS Urine 25 ng/mL (<5)
[2022-04-10] MEDS: SERTRALINE HCL 100 MG TABLET PO SCH (08:31)
--- NOTE | 2022-04-10 15:50 | Psychiatric Progress Note ---
Date of Service April 10, 2022 Impression / Recommendations Impression The patient is a 21 year old with a history of MDD, DULCE and PTSD who was admitted for worsening depression and SI with plan. Diagnostically consistent with MDD, recurrent, severe and PTSD and DULCE by history. Possible cluster B traits but suspect much more likely due to significant trauma and genetic predisposition. The patient is deemed unstable and requires psychiatric hospitalization for diagnostic clarification, safety and stabilization, medication management and development of further coping skills. 04/10/22: Continues to have depression with some intrusive thoughts related to body dysmorphia as well as intrusive thoughts of self-harm today. At times has been somewhat fixated on a male peer. She is tolerating the higher dose of sertraline without any new side effects. (1) MDD (major depressive disorder), recurrent episode, severe: (2) Post traumatic stress disorder (PTSD): (3) Suicidal ideation: Plan 04/10/22: Continue with current medications and treatment plan. Continuing to review DBT strategies/trauma focused coping skills. 04/09/22: Continue with current medications and treatment plan. 04/08/22: The patient was admitted to the [facility] ([facility] mental health unit) on q15 min checks (behavioral with suicide precautions) for safety. The patient will participate in group, recreational, and milieu therapies and will be offered additional individual and family sessions as clinically appropriate. -Increase sertraline to 200mg qd -Hydroxyzine 10mg qd prn -Propranolol 10mg BID prn -Espinosa BPD screen Inventory Assets Strengths: resilient/trauma survivor, higher education achievement, support from family, outpatient provider Needs: safety and stabilization, medication adjustment, additional coping skills, increased outpatient services Suicide Risk Level Suicide Risk Level Comments: High-Moderate due to severe depression with SI with plan prior to admission but feels safe in the hospital, able to safety contract and agrees to let nursing/staff know should they develop plan, intent or feel unable to remain safe. Risk Factors Assessment Do You Have Access To A Gun?: Yes (father has gun in home, pt unaware of where it is located) Mental Health Diagnoses: Yes Previous Attempt: Yes Family History of Suicide: Yes Previous Psychiatric Hospitalization: Yes Hopelessness: Yes Protective Factors Assessment Employed: Yes (works 3 different jobs) Stable Relationships: Yes Supportive Family: Yes Interval History Identifying Information CARMELA NORIEGA is a 21-year-old F who currently lives in [facility] with her parents, has a history of depression, and was admitted on 04/07/22 16:42 on a 201 voluntary commitment for SI with multiple plans. Chief Complaint "I had a bad morning". Review of Systems Sleep Information Total Hours of Sleep: 5 Meal Information Percent Meal Consumed - Breakfast: 100 Percent Meal Consumed - Lunch: 100 Percent Meal Consumed - Dinner: 100 Subjective Subjective Patient was seen & assessed and interval progress reviewed with treatment team nursing and social work. She reports having a difficult morning due to "body dysmorphia stuff" which she explains as intrusive thoughts telling her not to eat even though she enjoys food. Ultimately she was able to move past these thoughts and ate breakfast and lunch and has been feeling better about herself. She also feels she is making strides toward changing some of the automatic thought patterns she can get into particularly around fixating on a male peer. She remains at times focused on this peer but feels she has been able to avoid acting on some of her typical patterns of behavior or internal thoughts. She denies suicidal thoughts today but continues to have some thoughts regarding self-harm. Denies any side effects from the higher dose of sertraline other than night sweating which was also present at the lower dose she does not feel that this has gotten worse on the higher dose. Physical Exam Psychiatric Orientation: alert and oriented x 3 Apperance: appropriately dressed and appropriately groomed Eye Contact: good eye contact Motor Behavior: no abnormal motor movements Speech: normal rate/rhythm/volume of speech Affect: + depressed affect and + anxious affect Mood: + depressed mood and + anxious mood Thought Process: goal directed thought process Thought Content: reality based without delusions Suicidal Thoughts: denies suicidal plan (prior to admission, feels safe on the unit) and denies suicidal intent; + reports suicidal thoughts (Intermittent SI, today more self-harm related) Homicidal Thoughts: denies homicidal thoughts Hallucinations: no auditory hallucinations and no visual hallucinations Cognition: recent memory grossly intact, remote memory grossly intact, attention grossly intact and language grossly intact Estimated Intelligence: consistent with education level Insight: + fair insight Judgement: + fair judgement Vital Signs (Past 24 Hours) Last Vital Signs Temp 36.6 C 04/10/22 06:00 Pulse 77 04/10/22 06:00 Resp 16 04/10/22 06:00 BP 102/70 04/10/22 06:43 Pulse Ox 98 04/10/22 06:00 O2 Del Method 04/10/22 06:00 Results & Data ([facility]) Laboratory Results Laboratory Results - last 24 hr 04/07/22 14:05 U Marijuana THC Carboxy 25 H Drug Screen Comment SEE NOTE Current Inpatient Medications Current Inpatient Medications: Current Inpatient Medications Acetaminophen (Acetaminophen 325 Mg Tab) 650 mg PO Q4H PRN PRN Reason: Headache or Minor Fever Stop: 05/07/22 16:38 Al Hydrox/Mg Hydrox/Simethicone (Aluminum/Magnesium Susp 30 Ml Udc) 30 ml PO Q4H PRN PRN Reason: GI Upset Stop: 05/07/22 16:38 Bismuth Subsalicylate (Bismuth Subsalicylate Liqd 236 Ml) 15 ml PO PRN PRN PRN Reason: Loose Stool Stop: 05/07/22 16:38 Hydroxyzine HCl (Hydroxyzine Hcl 10 Mg Tab) 10 mg PO DAILY PRN PRN Reason: anxiety Stop: 05/08/22 11:06 Magnesium Hydroxide (Magnesium Hydroxide Susp 30 Ml Udc) 30 ml PO DAILY PRN PRN Reason: Constipation Stop: 05/07/22 16:38 Melatonin (Melatonin 3 Mg Tab) 3 mg PO HS PRN PRN Reason: Sleep Stop: 05/07/22 16:43 Propranolol HCl (Propranolol Hcl 10 Mg Tab) 10 mg PO BID PRN PRN Reason: Anxiety/Agitation Stop: 05/08/22 20:59 Sertraline HCl (Sertraline Hcl 100 Mg Tablet) 200 mg PO QAM KEO Stop: 05/09/22 08:59 Last Admin: 04/10/22 08:31 Dose: 200 mg Sodium Chloride (Sodium Chloride 0.65% Na Soln 45 Ml ([place])) 1 - 2 sprays NA PRN PRN PRN Reason: Nasal Dryness/Congestion Stop: 05/07/22 16:38 Mental Health & Subst Abuse Tx Psychiatrist Name of Psychiatrist: Bryan Hdez Psychiatrist's Psychiatric Appointment Comment: [facility] will refer you for psychiatry services after two more sessions. Therapist Name of Therapist: Bryan Ontiveros Therapist's Date of Therapist Appointment: 04/15/22 Time of Therapist Appointment: 9:00 AM Therapy Appointment Comment: [address] [place], [place] [address]Darlene Post Discharge Appointments Primary Care Physician Name Of Family Doctor: [facility] - Dr. Griffiths Primary Care Date of Appointment with PCP: 04/16/22 Time of Appointment with PCP: 9:00 AM Provider Appointment Comment: [address] [place] [address], [place] [id number]
[2022-04-11] MEDS: SERTRALINE HCL 100 MG TABLET PO SCH (09:21)
--- NOTE | 2022-04-11 14:50 | Psychiatric Progress Note ---
Date of Service April 11, 2022 Impression / Recommendations Impression The patient is a 21 year old with a history of MDD, DULCE and PTSD who was admitted for worsening depression and SI with plan. Diagnostically consistent with MDD, recurrent, severe and PTSD and DULCE by history. Possible cluster B traits but suspect much more likely due to significant trauma and genetic predisposition. The patient is deemed unstable and requires psychiatric hospitalization for diagnostic clarification, safety and stabilization, medication management and development of further coping skills. 04/11/22: as per Dr. Francis above. Feels medication is helping with intrussive thoughts about SIB. (1) MDD (major depressive disorder), recurrent episode, severe: (2) Post traumatic stress disorder (PTSD): (3) Suicidal ideation: Plan 04/11/22: continue current meds. Safety planning. Family meeting in am. 04/10/22: Continue with current medications and treatment plan. Continuing to review DBT strategies/trauma focused coping skills. 04/09/22: Continue with current medications and treatment plan. 04/08/22: The patient was admitted to the [facility] ([facility] unit) on q15 min checks (behavioral with suicide precautions) for safety. The patient will participate in group, recreational, and milieu therapies and will be offered additional individual and family sessions as clinically appropriate. -Increase sertraline to 200mg qd -Hydroxyzine 10mg qd prn -Propranolol 10mg BID prn -[place]spinosa BPD screen Inventory Assets Strengths: resilient/trauma survivor, higher education achievement, support from family, outpatient provider Needs: safety and stabilization, medication adjustment, additional coping skills, increased outpatient services Suicide Risk Level Suicide Risk Level: Moderate (q15 min suicide checks) (improving) Risk Factors Assessment Do You Have Access To A Gun?: Yes (father has gun in home, pt unaware of where it is located) Mental Health Diagnoses: Yes Previous Attempt: Yes Family History of Suicide: Yes Previous Psychiatric Hospitalization: Yes Hopelessness: Yes Protective Factors Assessment Employed: Yes (works 3 different jobs) Stable Relationships: Yes Supportive Family: Yes Interval History Identifying Information CARMELA NORIEGA is a 21-year-old F who currently lives in [facility] with her parents, has a history of depression, and was admitted on 04/07/22 16:42 on a 201 voluntary commitment for SI with multiple plans. Chief Complaint "I'm at a better place". Review of Systems Sleep Information Total Hours of Sleep: 6.5 Sleep Comments: roomate snoring, asked for ear buds Meal Information Percent Meal Consumed - Breakfast: 60 Percent Meal Consumed - Lunch: 50 Percent Meal Consumed - Dinner: 100 Subjective Subjective Patient was seen & assessed and interval progress reviewed with nursing and social work. Family meeting is scheduled for tomorrow. Working on safety planning. Cooperative with and benefiting from groups. Is overly focussed on a male peer (romantic interest) but following boundaries. Physical Exam Psychiatric Orientation: alert and oriented x 3 Apperance: appropriately dressed and appropriately groomed Eye Contact: good eye contact Motor Behavior: no abnormal motor movements Speech: normal rate/rhythm/volume of speech Affect: euthymic affect Mood: no anxious mood Thought Process: goal directed thought process Thought Content: reality based without delusions Suicidal Thoughts: denies suicidal thoughts Homicidal Thoughts: denies homicidal thoughts Hallucinations: no auditory hallucinations and no visual hallucinations Cognition: recent memory grossly intact, remote memory grossly intact, attention grossly intact and language grossly intact Estimated Intelligence: consistent with education level Insight: + fair insight Judgement: + fair judgement Vital Signs (Past 24 Hours) Last Vital Signs Temp 36.6 C 04/11/22 06:42 Pulse 89 04/11/22 06:42 Resp 16 04/11/22 06:42 BP 116/68 04/11/22 06:42 Pulse Ox 98 04/10/22 06:00 O2 Del Method 04/10/22 06:00 Results & Data ([facility]) Current Inpatient Medications Current Inpatient Medications: Current Inpatient Medications Acetaminophen (Acetaminophen 325 Mg Tab) 650 mg PO Q4H PRN PRN Reason: Headache or Minor Fever Stop: 05/07/22 16:38 Al Hydrox/Mg Hydrox/Simethicone (Aluminum/Magnesium Susp 30 Ml Udc) 30 ml PO Q4H PRN PRN Reason: GI Upset Stop: 05/07/22 16:38 Bismuth Subsalicylate (Bismuth Subsalicylate Liqd 236 Ml) 15 ml PO PRN PRN PRN Reason: Loose Stool Stop: 05/07/22 16:38 Hydroxyzine HCl (Hydroxyzine Hcl 10 Mg Tab) 10 mg PO DAILY PRN PRN Reason: anxiety Stop: 05/08/22 11:06 Magnesium Hydroxide (Magnesium Hydroxide Susp 30 Ml Udc) 30 ml PO DAILY PRN PRN Reason: Constipation Stop: 05/07/22 16:38 Melatonin (Melatonin 3 Mg Tab) 3 mg PO HS PRN PRN Reason: Sleep Stop: 05/07/22 16:43 Propranolol HCl (Propranolol Hcl 10 Mg Tab) 10 mg PO BID PRN PRN Reason: Anxiety/Agitation Stop: 05/08/22 20:59 Sertraline HCl (Sertraline Hcl 100 Mg Tablet) 200 mg PO QAM KEO Stop: 05/09/22 08:59 Last Admin: 04/11/22 09:21 Dose: 200 mg Sodium Chloride (Sodium Chloride 0.65% Na Soln 45 Ml ([place])) 1 - 2 sprays NA PRN PRN PRN Reason: Nasal Dryness/Congestion Stop: 05/07/22 16:38 Mental Health & Subst Abuse Tx Psychiatrist Name of Psychiatrist: Bryan Hdez Psychiatrist's Psychiatric Appointment Comment: [facility] will refer you for psychiatry services after two more sessions. Therapist Name of Therapist: Bryan Ontiveros Therapist's Date of Therapist Appointment: 04/15/22 Time of Therapist Appointment: 9:00 AM [facility]ment [facility] [address] [facility] Primary Care Physician Name Of Family Doctor: [facility] - Dr. Griffiths Primary Care Date of Appointment with PCP: 04/16/22 Time of Appointment with PCP: 9:00 AM Provider Appointment Comment: [phone] [place] [id number]
[2022-04-12] MEDS: SERTRALINE HCL 100 MG TABLET PO SCH (08:51)
--- NOTE | 2022-04-12 12:07 | Discharge Summary ---
Date of Service April 12, 2022 History of Present Illness As per Dr. Francis on admission: Dev presents for psychiatric admission at the recommendation of her therapist for worsening depression and SI with plans of jumping from a bridge, suicide by police or inhaling nitrogen in the last 2-3 weeks in the context of recent stressors including finishing graduate school, moving home, more social isolation with friends moving away, and romantic rejection. She notes that after the romantic rejection usually she can move on from that but this time "my brain brought up every negative thing that has happened to me". She sometimes has SI when she has a dip in low but over the last few weeks the SI has intensified and gotten to the point of happening all throughout the day and "ruminating on the thoughts" for at least 20 minutes at a time. About three days ago it intensified to the point of plans. Some rehearsal behaviors of veering her car while driving but then would correct herself. Significant neurovegetative symptoms of depression that have been worsening. Has been trying to fall asleep by using a guided meditation. She confirms recent symptoms of worsening depression as reviewed in collateral per ED CM: "Patient reports in the past 2 weeks she has been experiencing increased depressive symptoms; sadness, hopelessness, helplessness, feeling of being a burden to her family, and anhedonia. Patient reports that she also is having suicidal ideations with several plans including, jumping off a bridge, provoking police, or inhaling nitrogen. Patient reports that she was researching inhalation of nitrogen last night, but denies having access to nitrogen. Patient reports that precipitating stressors have been her friends moving across the country to live. Patient also reports feeling unwanted and rejected by people that she had recent intimate relationships. Patient reports that she just moved back home to live with her parents in [facility] after finishing her Master's Degree in [place]. 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 Patient reports that her sleep has been varying some due to work, but she feels as though she has been sleeping too much, typically getting 12-13 hours a sleep per night. Patient also reports that her depression has decreased her appetite and caused lack of motivation with her daily activities." She endorses some anxiety symptoms from being in the hospital in a new environment. She endorse PTSD symptoms including intrusive memories/flashbacks after being in the ED, hypervigilance, no longer with night terrors. She has been taking Zoloft 175mg per day for the last 8 years and on 175mg for the last 2-3 years. For awhile it was really helpful at preventing "these really bad lows" but about 2-3 weeks ago the medication stopped being as helpful. Does experience night sweats from it and has to shower in the mornings. Psychiatric ROS notable for no history of ann marie but in college did have some periods of time with decreased sleep but without significant increase in energy, no history of psychosis, hx of trauma/PTSD, hx self-harm via cutting, last two days ago, and using a rubber band, history of restricting calories during childhood and still some body dysmorphia but no restriction/binging or purging. Physical Exam Psychiatric See admission H&P and DOD assessment. Vital Signs (Past 24 Hours) Last Vital Signs Temp 36.8 C 04/12/22 06:37 Pulse 84 04/12/22 06:38 Resp 16 04/12/22 06:37 BP 110/69 04/12/22 06:38 Pulse Ox 98 04/10/22 06:00 O2 Del Method 04/10/22 06:00 Principal Diagnosis major depressive disorder Psychiatric Data See daily stay summary. In short, safety was maintained and the patient was cooperative with care. Medication changes included titration of Zoloft to 200 mg and they tolerated this well. A family session was held and safety plan was completed prior to discharge which also included securing weapons/meds, etc at home. Day of Discharge Assessment Today the patient voices readiness for discharge. They note improvement in mood and deny thoughts to harm self or others. Thoughts remain organized and they are improved from admission. There is no evidence of psychosis. They agree to take mediations as prescribed and keep follow-up appointments. They are stable for discharge to outpatient level of care. Transition of Care Transition Of Care Record: was reviewed with the patient Advance Directives Advance Directives Information Provided: Yes Advance Directives: No Mental Health Advance Directive: No Advance Directives on File: No Living Will: No Power of Hammer Heater: No Advance Directives Reason:: Declines as Mental Health Visit. Suicide Risk Level Suicide Risk Level Comments: Suicide risk at discharge is deemed low as the patient is no longer requiring 24-hr monitoring, has a safety plan, and is free of suicidal ideation at discharge. Risk Factors Assessment Do You Have Access To A Gun?: No (family secured) Mental Health Diagnoses: Yes Previous Attempt: Yes Family History of Suicide: Yes Previous Psychiatric Hospitalization: Yes Hopelessness: Yes Protective Factors Assessment Employed: Yes (works 3 different jobs) Stable Relationships: Yes Supportive Family: Yes Tobacco Cessation at Discharge Tobacco Cessation Medication Prescribed at Discharge: Not Applicable/Non-Smoker Total Time Total Time Spent: Greater Than 30 Minutes Total Time Includes: Examination of the patient, Discharge Planning and Medication Reconciliation Discharge Data Lab Results 04/07/22 04/07/22 04/07/22 14:05 14:05 14:05 WBC RBC Hgb Hct MCV MCH MCHC RDW Std Deviation RDW Coeff of Rosales Plt Count MPV Immature Gran % (Auto) Neut % (Auto) Lymph % (Auto) [place] % (Auto) Eos % (Auto) Baso % (Auto) Neut # (Auto) Lymph # (Auto) [place] # (Auto) Eos # (Auto) Baso # (Auto) Immature Gran # (Auto) Sodium Potassium Chloride Carbon Dioxide Anion Gap BUN Creatinine Est Cr Clr Drug Dosing Est GFR ( Amer) Est GFR (Non-Af Amer) BUN/Creatinine Ratio Glucose Calcium Total Bilirubin AST ALT Alkaline Phosphatase Total Protein Albumin Globulin Albumin/Globulin Ratio TSH HCG, Qual Urine Color Yellow Urine Appearance Clear Urine pH 6.0 Ur Specific Forman 1.020 Urine Protein Negative Urine Glucose (UA) Negative Urine Ketones Negative Urine Blood Negative Urine Nitrite Negative Urine Bilirubin Negative Urine Urobilinogen Negative Ur Leukocyte Esterase Negative Salicylates Urine Opiates Screen Neg Ur Methadone, Qual Neg Acetaminophen Urine Barbiturates Neg Ur Phencyclidine (PCP) Neg U Amphetamin/Meth Scrn Neg MDMA (Ecstasy) Screen Neg U Benzodiazepines Scrn Neg Ur Cocaine Metabolite Neg U Marijuana (THC) Screen Pos H U Marijuana THC Carboxy 25 H Drug Screen Comment SEE NOTE Ethyl Alcohol mg/dL SARS-CoV-2, RNA, NAAT 04/07/22 04/07/22 04/07/22 14:39 14:39 14:39 WBC 7.52 RBC 4.55 Hgb 13.6 Hct 41.8 MCV 91.9 MCH 29.9 MCHC 32.5 RDW Std Deviation 45.0 RDW Coeff of Rosales 13.2 Plt Count 309 MPV 9.4 Immature Gran % (Auto) 0.3 Neut % (Auto) 56.3 Lymph % (Auto) 31.6 [place] % (Auto) 9.3 Eos % (Auto) 2.0 Baso % (Auto) 0.5 Neut # (Auto) 4.23 Lymph # (Auto) 2.38 [place] # (Auto) 0.70 Eos # (Auto) 0.15 Baso # (Auto) 0.04 Immature Gran # (Auto) 0.02 Sodium 138 Potassium 4.1 Chloride 105 Carbon Dioxide 29 Anion Gap 4 BUN 9 Creatinine 0.68 Est Cr Clr Drug Dosing 126.2 Est GFR ( Amer) 142.9 Est GFR (Non-Af Amer) 123.3 BUN/Creatinine Ratio 13.2 Glucose 91 Calcium 9.1 Total Bilirubin 0.4 AST 11 L ALT 9 Alkaline Phosphatase 64 Total Protein 7.2 Albumin 4.1 Globulin 3.1 Albumin/Globulin Ratio 1.3 TSH HCG, Qual Negative Urine Color Urine Appearance Urine pH Ur Specific Forman Urine Protein Urine Glucose (UA) Urine Ketones Urine Blood Urine Nitrite Urine Bilirubin Urine Urobilinogen Ur Leukocyte Esterase Salicylates Urine Opiates Screen Ur Methadone, Qual Acetaminophen Urine Barbiturates Ur Phencyclidine (PCP) U Amphetamin/Meth Scrn MDMA (Ecstasy) Screen U Benzodiazepines Scrn Ur Cocaine Metabolite U Marijuana (THC) Screen U Marijuana THC Carboxy Drug Screen Comment Ethyl Alcohol mg/dL SARS-CoV-2, RNA, NAAT 04/07/22 04/07/22 04/07/22 14:39 14:39 14:39 WBC RBC Hgb Hct MCV MCH MCHC RDW Std Deviation RDW Coeff of Rosales Plt Count MPV Immature Gran % (Auto) Neut % (Auto) Lymph % (Auto) [place] % (Auto) Eos % (Auto) Baso % (Auto) Neut # (Auto) Lymph # (Auto) [place] # (Auto) Eos # (Auto) Baso # (Auto) Immature Gran # (Auto) Sodium Potassium Chloride Carbon Dioxide Anion Gap BUN Creatinine Est Cr Clr Drug Dosing Est GFR ( Amer) Est GFR (Non-Af Amer) BUN/Creatinine Ratio Glucose Calcium Total Bilirubin AST ALT Alkaline Phosphatase Total Protein Albumin Globulin Albumin/Globulin Ratio TSH 1.127 HCG, Qual Urine Color Urine Appearance Urine pH Ur Specific Forman Urine Protein Urine Glucose (UA) Urine Ketones Urine Blood Urine Nitrite Urine Bilirubin Urine Urobilinogen Ur Leukocyte Esterase Salicylates < 3.0 L Urine Opiates Screen Ur Methadone, Qual Acetaminophen < 3 L Urine Barbiturates Ur Phencyclidine (PCP) U Amphetamin/Meth Scrn MDMA (Ecstasy) Screen U Benzodiazepines Scrn Ur Cocaine Metabolite U Marijuana (THC) Screen U Marijuana THC Carboxy Drug Screen Comment Ethyl Alcohol mg/dL < 10.0 SARS-CoV-2, RNA, NAAT 04/07/22 14:39 WBC RBC Hgb Hct MCV MCH MCHC RDW Std Deviation RDW Coeff of Rosales Plt Count MPV Immature Gran % (Auto) Neut % (Auto) Lymph % (Auto) [place] % (Auto) Eos % (Auto) Baso % (Auto) Neut # (Auto) Lymph # (Auto) [place] # (Auto) Eos # (Auto) Baso # (Auto) Immature Gran # (Auto) Sodium Potassium Chloride Carbon Dioxide Anion Gap BUN Creatinine Est Cr Clr Drug Dosing Est GFR ( Amer) Est GFR (Non-Af Amer) BUN/Creatinine Ratio Glucose Calcium Total Bilirubin AST ALT Alkaline Phosphatase Total Protein Albumin Globulin Albumin/Globulin Ratio TSH HCG, Qual Urine Color Urine Appearance Urine pH Ur Specific Forman Urine Protein Urine Glucose (UA) Urine Ketones Urine Blood Urine Nitrite Urine Bilirubin Urine Urobilinogen Ur Leukocyte Esterase Salicylates Urine Opiates Screen Ur Methadone, Qual Acetaminophen Urine Barbiturates Ur Phencyclidine (PCP) U Amphetamin/Meth Scrn MDMA (Ecstasy) Screen U Benzodiazepines Scrn Ur Cocaine Metabolite U Marijuana (THC) Screen U Marijuana THC Carboxy Drug Screen Comment Ethyl Alcohol mg/dL SARS-CoV-2, RNA, NAAT NEGATIVE Hospital Course (1) MDD (major depressive disorder), recurrent episode, severe: (2) Post traumatic stress disorder (PTSD): (3) Suicidal ideation: Plan 04/11/22: continue current meds. Safety planning. Family meeting in am. 04/10/22: Continue with current medications and treatment plan. Continuing to review DBT strategies/trauma focused coping skills. 04/09/22: Continue with current medications and treatment plan. 04/08/22: The patient was admitted to the [facility] ([facility] health unit) on q15 min checks (behavioral with suicide precautions) for safety. The patient will participate in group, recreational, and milieu therapies and will be offered additional individual and family sessions as clinically appropriate. -Increase sertraline to 200mg qd -Hydroxyzine 10mg qd prn -Propranolol 10mg BID prn -Espinosa BPD screen Mental Health & Subst Abuse Tx Psychiatrist Name of Psychiatrist: Bryan Hdez Psychiatrist's Psychiatric Appointment Comment: Hansa will refer you for psychiatry services after two more sessions. Therapist Name of Therapist: Bryan Hdez - [facility] Therapist's Date of Therapist Appointment: 04/15/22 Time of Therapist Appointment: 9:00 AM [facility] [address] [facility] Primary Care Physician Name Of Family Doctor: [facility] - Dr. Griffiths [facility] Date of Appointment with PCP: 04/16/22 Time of Appointment with PCP: 9:00 AM Provider Appointment Comment: [address] [place] [address] Smoking Cessation Counseling Tobacco Cessation Medication Prescribed at Discharge: Not Applicable/Non-Smoker Discharge Plan Discharge Items Patient Disposition: Home - Self-Care Reason For Visit: MDD WITH SI Discharge Diagnosis: major depressive disorder Condition on Discharge: Good Activity: Resume your previous activity Non-emergency contact: Primary Care Provider, Psychiatrist and Therapist Call non-emergency contact if: you have any medication questions and your symptoms worsen Follow-up/Referrals: PCP,NO [Primary Care Provider] - Diet: Regular Addtl Attending Provider Instructions: SPECIAL CARE INSTRUCTIONS: 1. Follow through with your scheduled aftercare appointments. If unable to keep an appointment, please call to reschedule. 2. Take your medication only as prescribed. Medication should not be changed or stopped without the approval of your doctor. In the event of worsening symptoms or concerns about side effects, contact your doctor immediately. 3. Utilize new healthy coping skills, anger management skills, and stress management skills learned during your hospitalization. Journal feelings and process them with a support person. Identify stressors or situations that may result in relapse, deterioration or inappropriate behaviors and develop a plan to deal with those issues. 4. If your coping skills are ineffective and you are in crisis, contact your outpatient providers for direction. If unable to reach your providers, please call the [facility] CRISIS LINE AT , go to the [facility] walk-in center at [address] [place] [address], [address], [place], or go to the closest Emergency Room. 5. Avoid alcohol and un-prescribed drugs. 6. You have been provided with the Mental Health Advance Directives Pamphlet for your review. 7. Your condition is stable for discharge to outpatient level of care, but recovery is an ongoing process. Ifthoughts to harm yourself or others return, follow the safety plan developed during your stay. Planning for a safe return home includes securing weapons. Our treatment team recommends weaponsbe removed from the home until your outpatient provider reassesses your progress. In rare cases where the items themselvescannot be removed, guns and ammunitionshould be secured separatelyand keys stored by a reliable personoutside of the home. If you were admitted on an involuntary commitment, the police or other legal authorities may be involved in this process. AFTERCARE APPOINTMENTS: * Please call your insurance company prior to your scheduled appointment to confirm your aftercare providers are covered. Take your insurance information to your appointments. WHO TO CALL AND WHEN: Medical Emergencies: For questions or emergencies related to your hospital stay, please contact the Inpatient Behavioral Health Unit at [phone]. A heat reader is on-call 05/04 for the Behavioral Health Unit for emergencies At any time you feel your situation is an emergency, you may also call 911 immediately. Pending Studies at Discharge: No Stand-Alone Forms: My [facility], Smoking Cessation Medications and DC Order Prescriptions: New sertraline 100 mg Tablet 200 mg PO QAM 30 Days Qty: 60 0RF Discontinued sertraline 100 mg tablet 175 mg PO DAILY Discharge Orders: Discharge Order (Routine); Ordered 04/12/22 Ordered By: Jessica Nelson Admission Data Admit Date/Time: 04/07/22 16:42 Attending Provider: Jessica Nelson Admit Provider: Kimberly Francis Primary Care Provider: PCP,NO Other Interventions: Discharge Summary Assessment (RN) Last Done: 04/12/22 12:35 PSY Interdisciplinary Discharge Planning Last Done: 04/12/22 12:39 Coding Level of Care Code 60750 D/C day mgmt > 30 min Diagnoses MDD (major depressive disorder), recurrent episode, severe F33.2 Post traumatic stress disorder (PTSD) F43.10 Suicidal ideation R45.851
== END 2022-04-12 13:02 | disposition home or self-care (01) | DRG 885 ==
LOC: ED 13:36 → SUATTDRO 16:42 → 3S 16:42